=== PATIENT | male | born 1930 | race Caucasian/White ===

== ENCOUNTER 2017-03-16 12:41 | Observation (INO) | payer MEDICARE, BC ==
[2017-03-16] VITALS (9 sets, daily range): BP systolic 120–149; BP diastolic 61–77; PULSE 72–97; TEMP 97–98.2
[~2017-03-16] VITALS: Ht 165.1 cm; Wt 93.8 kg
[~2017-03-16 12:41] MED LIST: ALEVE 220MG220 MG PO; ASPIRIN E.C. 8181 MG PO; BETAPACE 80MG80 MG PO; BETAPACEAF120 PO; CARDI-OMEGA1000 MG PO; CEPHALEXIN500 M1 PO; COMPAZINE 110 MG/TAB PO; COUMADIN 22.5 MG/TAB PO; COUMADIN 3MG3 MG/TAB PO; COUMADIN 5MG5 MG/TAB PO; FLOMAX 0.40.4 MG/CAP PO; GLUCOPHAGE1000 MG PO; HUMALOG100 U/ML INJ; HUMALOG100 U/ML SC; HUMALOG100 U/ML SQ; K-DUR 2020 MEQ PO; K-TAB20 PO; LANTUS100 U/ML SC; LASIX 40MG TABL40 MG PO; MULTI VITAMINS1 TAB PO; NORVASC 5MG5 MG/TAB PO; NORVASC2.5 MG PO; SALMON OIL1000 MG PO; TYLENOL ARTHRI650 M1 PO; VASOTEC20 MG PO; WELCHOL 625MG625 MG PO; XALATAN EYE DROPS OP; ZYLOPRIM 300MG300 MG PO
[2017-03-16 13:24] LABS: HEMATOCRIT 31.2 % (42.0-52.0); HEMOGLOBIN 10.3 g/dl (13.5-18.0)
[2017-03-16] MEDS ORDERED: BETAPACE 80MG80 MG PO (14:41)
[2017-03-16] MEDS ORDERED: NORVASC2.5 MG PO (14:44)
[2017-03-16] MEDS ORDERED: VASOTEC20 MG PO (14:55)
[2017-03-16] MEDS ORDERED: NOVOLOG 100U100 U/M1 SQ (15:01)
[2017-03-16] MEDS ORDERED: WELCHOL 625MG625 MG PO (15:09)
[2017-03-16] MEDS ORDERED: PRILOSEC 20MG20 MG PO (15:10)
[2017-03-16] MEDS ORDERED: CEPHALEXIN500 M1 PO (15:11)
[2017-03-17 02:00] VITALS: BP 166/71; PULSE 91; TEMP 98.4
[2017-03-17 05:50] VITALS: BP 106/36; PULSE 77; TEMP 97.5
[2017-03-17 06:36] LABS: MEAN CELL VOLUME 99 fl (80.0-100.0); MEAN CORPUSCULAR HGB CONC 32 g/dl (33.0-37.0); MEAN PLATELET VOLUME 10.2 fl (7.4-10.4); PLATELET COUNT 249 K/mm3 (130-400); RED BLOOD COUNT 2.91 M/mm3 (4.20-5.60); REDCELL DISTRIBUTION WIDTH-CV 19.2 % (11.5-14.5); WHITE BLOOD COUNT 13.3 K/mm3 (4.8-10.8)
[2017-03-17 06:49] LABS: HEMATOCRIT 28.8 % (42.0-52.0); HEMOGLOBIN 9.3 g/dl (13.5-18.0); MEAN CORPUSCULAR HEMOGLOBIN 32 pg (27.0-31.0)
[2017-03-17 08:52] VITALS: BP 142/56
[2017-03-17 13:41] VITALS: BP 110/51; PULSE 73; TEMP 97.6
[2017-03-17 17:35] VITALS: BP 103/53; PULSE 85; TEMP 98.1
[2017-03-17 21:25] VITALS: BP 120/39; PULSE 74; TEMP 98.6
[2017-03-18 02:10] VITALS: BP 115/31; PULSE 75; TEMP 98.2
[2017-03-18 05:07] VITALS: BP 141/57; PULSE 84; TEMP 98
[2017-03-18 10:37] VITALS: BP 114/48; PULSE 72; TEMP 97.6
[2017-03-18 14:02] VITALS: BP 118/54; PULSE 69; TEMP 98.2
[2017-04-21] VITALS (553 sets, daily range): O2SAT 88–100
[2017-04-22] VITALS (1149 sets, daily range): O2SAT 79–99
[2017-04-23] VITALS (1277 sets, daily range): O2SAT 85–99
[2017-04-24] VITALS (464 sets, daily range): O2SAT 87–99
== END 2017-03-18 16:59 | disposition home or self-care (01) ==
LOC: SDCO 12:41 → JCC 17:06 → SDCO 03-17 13:00 → JCC 03-17 13:00
PROVIDERS: Urology
DX: C61 Malignant neoplasm of prostate (principal); N40.1 Benign prostatic hyperplasia with lower urinary tract symptoms; N13.8 Other obstructive and reflux uropathy; I48.91 Unspecified atrial fibrillation; I25.10 Atherosclerotic heart disease of native coronary artery without angina pectoris; I11.0 Hypertensive heart disease with heart failure; I50.9 Heart failure, unspecified; J44.9 Chronic obstructive pulmonary disease, unspecified; E11.9 Type 2 diabetes mellitus without complications; M19.90 Unspecified osteoarthritis, unspecified site; E66.9 Obesity, unspecified; M10.9 Gout, unspecified; D61.9 Aplastic anemia, unspecified; N39.0 Urinary tract infection, site not specified; I25.2 Old myocardial infarction; I45.10 Unspecified right bundle-branch block; R39.12 Poor urinary stream; Z95.0 Presence of cardiac pacemaker; Z79.84 Long term (current) use of oral hypoglycemic drugs; Z79.4 Long term (current) use of insulin; Z95.1 Presence of aortocoronary bypass graft; Z96.651 Presence of right artificial knee joint; Z85.51 Personal history of malignant neoplasm of bladder; Z87.891 Personal history of nicotine dependence; Z83.49 Family history of other endocrine, nutritional and metabolic diseases
CPT/HCPCS: OP; G0378; J0690; J1815; J2250; J2370; J2405; J2704; J3010; J3480; J7030

== ENCOUNTER 2017-04-07 15:54 | Inpatient (IN) | payer MEDICARE, BC ==
[~2017-04-07] VITALS: Ht 165.1 cm; Wt 103.6 kg
[~2017-04-07 15:54] MED LIST changes: +NOVOLOG 100U100 U/M1 SQ; +PRILOSEC 20MG20 MG PO
[2017-04-20 09:14] VITALS: BP 142/50; PULSE 70; TEMP 97.9
[2017-04-20] MEDS ORDERED: NEXIUM 20MG20 MG PO (11:29)
[2017-04-20] MEDS ORDERED: PRESERVISION1 SGL PO (12:52)
[2017-04-20] MEDS ORDERED: FOLIC ACID800 MCG PO (12:54)
[2017-04-20] MEDS ORDERED: PRILOSEC 20MG20 MG PO (13:46)
[2017-04-20 13:51] VITALS: BP 153/65; PULSE 70; TEMP 98.4
[2017-04-20 14:39] LABS: CREATININE, serum 1.44 mg/dL (0.66-1.25); POTASSIUM 4.7 mmol/L (3.4-5.0)
[2017-04-20 14:40] LABS: MEAN CELL VOLUME 98 fl (80.0-100.0); MEAN CORPUSCULAR HGB CONC 33 g/dl (33.0-37.0); MEAN PLATELET VOLUME 10.1 fl (7.4-10.4); PLATELET COUNT 236 K/mm3 (130-400); RED BLOOD COUNT 3.53 M/mm3 (4.20-5.60); REDCELL DISTRIBUTION WIDTH-CV 18.7 % (11.5-14.5); WHITE BLOOD COUNT 10.6 K/mm3 (4.8-10.8)
[2017-04-20 14:43] LABS: HEMATOCRIT 34.6 % (42.0-52.0); HEMOGLOBIN 11.3 g/dl (13.5-18.0); MEAN CORPUSCULAR HEMOGLOBIN 32 pg (27.0-31.0)
[2017-04-20 17:22] VITALS: BP 155/64; PULSE 88; TEMP 98
[2017-04-20 21:59] VITALS: BP 145/61; PULSE 79; TEMP 98.1
[2017-04-21] VITALS (17 sets, daily range): BP systolic 121–172; BP diastolic 46–108; PULSE 67–105; TEMP 96.7–98.2
[2017-04-21 10:45] LABS: ARTERIAL BLD GAS TCO2 CT 19.9; ARTERIAL BLOOD GAS BASE EXCESS -9.2 (-2-2); ARTERIAL BLOOD GAS HCO3 18.4 meq/L (22-26); OXYHEMOGLOBIN 97.2 %
[2017-04-21 10:47] LABS: ARTERIAL BLOOD GAS pH 7.19 (7.35-7.45)
[2017-04-21 10:48] LABS: ARTERIAL BLOOD GAS PO2 194.4 mmHg (80-100); ATS? NO
[2017-04-21 10:54] LABS: HEMATOCRIT 28.6 % (42.0-52.0)
[2017-04-21 13:50] LABS: ARTERIAL BLD GAS O2 SATURATION 98.2 % (92-100); ARTERIAL BLD GAS TCO2 CT 16.5; ARTERIAL BLOOD GAS BASE EXCESS -9.4 (-2-2); ARTERIAL BLOOD GAS HCO3 15.5 meq/L (22-26); ARTERIAL BLOOD GAS PHT 7.32 C (7.35-7.45); ARTERIAL BLOOD GAS pH 7.32 (7.35-7.45); OXYHEMOGLOBIN 97.8 %
[2017-04-21 14:18] LABS: ALLEN TEST NO; ATS? YES
[2017-04-21 20:54] LABS: BASO # 0.1 (0.0-0.2); BASO % 0.3 % (0.0-2.0); EOS % 0.1 % (0-4.0); GRAN # 11.6 (1.4-6.5); GRAN % 79.2 % (42.2-75.2); LYMPH # 0.9 (1.2-3.4); LYMPH % 5.9 % (20.0-51.0); MEAN CELL VOLUME 96 fl (80.0-100.0); MEAN CORPUSCULAR HGB CONC 33 g/dl (33.0-37.0); MEAN PLATELET VOLUME 10.2 fl (7.4-10.4); MONO # 1.8 (0.1-0.6); MONO % 12.6 % (1.7-9.3); PLATELET COUNT 177 K/mm3 (130-400); RED BLOOD COUNT 3.63 M/mm3 (4.20-5.60); REDCELL DISTRIBUTION WIDTH-CV 18.1 % (11.5-14.5); WHITE BLOOD COUNT 14.6 K/mm3 (4.8-10.8)
[2017-04-21 20:55] LABS: HEMATOCRIT 34.8 % (42.0-52.0); HEMOGLOBIN 11.5 g/dl (13.5-18.0); MEAN CORPUSCULAR HEMOGLOBIN 32 pg (27.0-31.0)
[2017-04-22] VITALS (12 sets, daily range): BP systolic 99–140; BP diastolic 51–82; PULSE 63–91; TEMP 97.5–98
[2017-04-22 04:58] LABS: ARTERIAL BLD GAS O2 SATURATION 95.3 % (92-100); ARTERIAL BLD GAS TCO2 CT 17.4; ARTERIAL BLOOD GAS BASE EXCESS -7.6 (-2-2); ARTERIAL BLOOD GAS HCO3 16.5 meq/L (22-26); ARTERIAL BLOOD GAS pH 7.37 (7.35-7.45); OXYHEMOGLOBIN 94.7 %
[2017-04-22 04:59] LABS: BASO % 0.3 % (0.0-2.0); EOS % 0.1 % (0-4.0); GRAN # 11.9 (1.4-6.5); GRAN % 79.4 % (42.2-75.2); LYMPH # 0.9 (1.2-3.4); LYMPH % 5.7 % (20.0-51.0); MEAN CELL VOLUME 97 fl (80.0-100.0); MEAN CORPUSCULAR HGB CONC 33 g/dl (33.0-37.0); MEAN PLATELET VOLUME 10.4 fl (7.4-10.4); MONO % 13.1 % (1.7-9.3); PLATELET COUNT 199 K/mm3 (130-400); RED BLOOD COUNT 3.44 M/mm3 (4.20-5.60); REDCELL DISTRIBUTION WIDTH-CV 18.3 % (11.5-14.5)
[2017-04-22 05:01] LABS: ABG VENTILATOR TIDAL VOLUME 500 mL; ATS? NO
[2017-04-22 05:03] LABS: HEMATOCRIT 33.3 % (42.0-52.0); HEMOGLOBIN 10.9 g/dl (13.5-18.0); MEAN CORPUSCULAR HEMOGLOBIN 32 pg (27.0-31.0)
[2017-04-22 05:10] LABS: ADJUSTED CALCIUM 8.9 mg/dL (8.4-10.2); BILIRUBIN,TOTAL 0.4 mg/dL (0.0-1.0); CALCIUM 7.3 mg/dL (8.4-10.2); CREATININE, serum 2.08 mg/dL (0.66-1.25); MAGNESIUM 1.1 mg/dL (1.6-2.3); PHOSPHOROUS 4.4 mg/dL (2.5-4.5); POTASSIUM 4.3 mmol/L (3.4-5.0); TOTAL PROTEIN 4.5 gm/dL (6.4-8.2)
[2017-04-22 10:03] LABS: ARTERIAL BLD GAS TCO2 CT 18.9; ARTERIAL BLOOD GAS BASE EXCESS -6.4 (-2-2); ARTERIAL BLOOD GAS HCO3 17.9 meq/L (22-26); ARTERIAL BLOOD GAS PHT 7.37 C (7.35-7.45); ARTERIAL BLOOD GAS PO2 85.2 mmHg (80-100); ARTERIAL BLOOD GAS PO2T 85.2 (80-100); ARTERIAL BLOOD GAS pH 7.37 (7.35-7.45); OXYHEMOGLOBIN 95.3 %
[2017-04-22 10:04] LABS: ATS? NO
[2017-04-22 16:10] LABS: HEMATOCRIT 32.5 % (42.0-52.0); HEMOGLOBIN 10.7 g/dl (13.5-18.0)
[2017-04-22 16:25] LABS: ADJUSTED CALCIUM 8.9 mg/dL (8.4-10.2); ALBUMIN 2.1 gm/dL (3.5-5.0); BILIRUBIN,TOTAL 0.4 mg/dL (0.0-1.0); CALCIUM 7.4 mg/dL (8.4-10.2); CREATININE, serum 2.55 mg/dL (0.66-1.25); MAGNESIUM 1.6 mg/dL (1.6-2.3); PHOSPHOROUS 4.7 mg/dL (2.5-4.5); POTASSIUM 4.1 mmol/L (3.4-5.0); TOTAL PROTEIN 4.7 gm/dL (6.4-8.2)
[2017-04-23 03:48] VITALS: BP 131/99; PULSE 79; TEMP 96.8
[2017-04-23 05:06] LABS: BASO # 0.1 (0.0-0.2); BASO % 0.3 % (0.0-2.0); EOS # 0.1 (0.0-0.7); EOS % 0.5 % (0-4.0); GRAN # 12.2 (1.4-6.5); GRAN % 79.8 % (42.2-75.2); HEMATOCRIT 30.4 % (42.0-52.0); HEMOGLOBIN 9.9 g/dl (13.5-18.0); LYMPH # 0.9 (1.2-3.4); MEAN CELL VOLUME 98 fl (80.0-100.0); MEAN CORPUSCULAR HEMOGLOBIN 32 pg (27.0-31.0); MEAN CORPUSCULAR HGB CONC 33 g/dl (33.0-37.0); MEAN PLATELET VOLUME 10.5 fl (7.4-10.4); MONO # 1.6 (0.1-0.6); MONO % 10.7 % (1.7-9.3); PLATELET COUNT 181 K/mm3 (130-400); REDCELL DISTRIBUTION WIDTH-CV 18.3 % (11.5-14.5); WHITE BLOOD COUNT 15.3 K/mm3 (4.8-10.8)
[2017-04-23 05:12] LABS: INR 1.2 (0.8-3.0)
[2017-04-23 05:19] LABS: ADJUSTED CALCIUM 8.9 mg/dL (8.4-10.2); ALBUMIN 2.1 gm/dL (3.5-5.0); BILIRUBIN,TOTAL 0.4 mg/dL (0.0-1.0); CALCIUM 7.4 mg/dL (8.4-10.2); CREATININE, serum 2.83 mg/dL (0.66-1.25); MAGNESIUM 1.6 mg/dL (1.6-2.3); PHOSPHOROUS 5.2 mg/dL (2.5-4.5); POTASSIUM 4.7 mmol/L (3.4-5.0); TOTAL PROTEIN 4.6 gm/dL (6.4-8.2)
[2017-04-23 08:00] VITALS: BP 141/66; PULSE 79; TEMP 98.6
[2017-04-23 12:00] VITALS: BP 134/57; PULSE 75; TEMP 97.5
[2017-04-23 16:00] VITALS: BP 151/52; PULSE 87
[2017-04-23 20:00] VITALS: BP 158/50; PULSE 92; TEMP 97.2
[2017-04-23 20:17] LABS: URINE APPEARANCE Turbid; URINE COLOR Red
[2017-04-23 20:18] LABS: PH 5 (5-8); URINE BILIRUBIN Negative (NEGATIVE); URINE BLOOD 3+ (NEGATIVE); URINE GLUCOSE 3+ (NEGATIVE); URINE KETONE Negative (NEGATIVE); URINE UROBILINOGEN Negative (NEGATIVE)
[2017-04-23 20:22] LABS: URINE RBC >50 /hpf
[2017-04-23 20:23] LABS: SQUAMOUS EPITHELIAL 0-2 /hpf
[2017-04-23 21:20] LABS: URINE PROTEIN:CREAT RATIO 2.93 (0.00-0.14)
[2017-04-23 23:55] VITALS: BP 149/63; PULSE 79; TEMP 97.9
[2017-04-24 03:55] VITALS: BP 130/44; PULSE 72; TEMP 97.3
[2017-04-24 04:48] LABS: ARTERIAL BLD GAS O2 SATURATION 92.3 % (92-100); ARTERIAL BLD GAS TCO2 CT 21.1; ARTERIAL BLOOD GAS BASE EXCESS -4.8 (-2-2); ARTERIAL BLOOD GAS PHT 7.36 C (7.35-7.45); ARTERIAL BLOOD GAS PO2 66.4 mmHg (80-100); ARTERIAL BLOOD GAS PO2T 66.4 (80-100); ARTERIAL BLOOD GAS pH 7.36 (7.35-7.45); OXYHEMOGLOBIN 91.8 %
[2017-04-24 04:49] LABS: ALLEN TEST YES; ALLENS TEST RESULT PASS; ATS? YES
[2017-04-24 06:27] LABS: CALCIUM 7.8 mg/dL (8.4-10.2); CREATININE, serum 3.15 mg/dL (0.66-1.25); MAGNESIUM 2.5 mg/dL (1.6-2.3); PHOSPHOROUS 3.6 mg/dL (2.5-4.5)
[2017-04-24 08:00] VITALS: BP 146/55; PULSE 71; TEMP 97.6
[2017-04-24 12:00] VITALS: BP 144/64; PULSE 78; TEMP 97.6
[2017-04-24 18:38] VITALS: BP 129/63; PULSE 84; TEMP 97.5
[2017-04-25 02:31] VITALS: BP 131/62; PULSE 70; TEMP 97.5
[2017-04-25 06:01] VITALS: BP 126/57; PULSE 72; TEMP 98.8
[2017-04-25 07:31] LABS: MEAN CELL VOLUME 98 fl (80.0-100.0); MEAN CORPUSCULAR HGB CONC 33 g/dl (33.0-37.0); MEAN PLATELET VOLUME 11.1 fl (7.4-10.4); PLATELET COUNT 201 K/mm3 (130-400); RED BLOOD COUNT 2.91 M/mm3 (4.20-5.60); REDCELL DISTRIBUTION WIDTH-CV 18.1 % (11.5-14.5); WHITE BLOOD COUNT 11.7 K/mm3 (4.8-10.8)
[2017-04-25 07:34] LABS: HEMATOCRIT 28.6 % (42.0-52.0); HEMOGLOBIN 9.3 g/dl (13.5-18.0); MEAN CORPUSCULAR HEMOGLOBIN 32 pg (27.0-31.0)
[2017-04-25 07:42] LABS: MAGNESIUM 2.7 mg/dL (1.6-2.3); PHOSPHOROUS 2.8 mg/dL (2.5-4.5)
[2017-04-25 07:43] LABS: ADJUSTED CALCIUM 9.9 mg/dL (8.4-10.2); ALBUMIN 2.2 gm/dL (3.5-5.0); BILIRUBIN,TOTAL 0.6 mg/dL (0.0-1.0); CALCIUM 8.5 mg/dL (8.4-10.2); CREATININE, serum 3.79 mg/dL (0.66-1.25)
[2017-04-25 08:08] LABS: BAND 8 % (0-10); BASOPHIL 1 % (0-2); EOSINOPHIL 1 % (0-4); HYPOCHROMIA 1+; METAMYELOCYTE 2 % (0-0); MYELOCYTE 2 % (0-0); NEUTROPHILS 76 % (42.0-75.2); PLATELET ESTIMATE NORMAL (NORMAL); TOTAL CELLS COUNTED 100
[2017-04-25 08:09] LABS: ADD PATHOLOGY DIFF REVIEW YES
[2017-04-25 08:24] LABS: PATHOLOGY DIFF REVIEW OK
[2017-04-25 10:55] VITALS: BP 134/51; PULSE 73; TEMP 97.4
[2017-04-25 14:16] VITALS: BP 148/57; PULSE 76; TEMP 97.8
[2017-04-25 18:05] VITALS: BP 161/61; PULSE 84
[2017-04-25 21:58] VITALS: BP 137/54; PULSE 79; TEMP 97.7
[2017-04-26 02:04] VITALS: BP 149/55; PULSE 80; TEMP 97.1
[2017-04-26 05:02] LABS: CALCIUM 8.1 mg/dL (8.4-10.2); MAGNESIUM 2.6 mg/dL (1.6-2.3); PHOSPHOROUS 2.8 mg/dL (2.5-4.5); POTASSIUM 3.9 mmol/L (3.4-5.0)
[2017-04-26 05:15] LABS: CREATININE, serum 4.13 mg/dL (0.66-1.25)
[2017-04-26 05:23] LABS: CREATININE, serum 4.12 mg/dL (0.66-1.25); FRACTIONAL EXCRETION OF NA+ 7.2 %
[2017-04-26 05:45] VITALS: BP 149/66; PULSE 76; TEMP 98.6
[2017-04-26 08:16] LABS: MEAN CELL VOLUME 99 fl (80.0-100.0); MEAN CORPUSCULAR HGB CONC 32 g/dl (33.0-37.0); MEAN PLATELET VOLUME 11.2 fl (7.4-10.4); PLATELET COUNT 205 K/mm3 (130-400); WHITE BLOOD COUNT 10.4 K/mm3 (4.8-10.8)
[2017-04-26 08:17] LABS: HEMATOCRIT 27.6 % (42.0-52.0); HEMOGLOBIN 8.9 g/dl (13.5-18.0); MEAN CORPUSCULAR HEMOGLOBIN 32 pg (27.0-31.0)
[2017-04-26 08:18] LABS: ADD PATHOLOGY DIFF REVIEW NO
[2017-04-26 08:45] LABS: BAND 7 % (0-10); EOSINOPHIL 8 % (0-4); METAMYELOCYTE 2 % (0-0); MYELOCYTE 2 % (0-0); NEUTROPHILS 68 % (42.0-75.2); PLATELET ESTIMATE NORMAL (NORMAL); TOTAL CELLS COUNTED 100
[2017-04-26 09:53] VITALS: BP 158/72; PULSE 80; TEMP 97.6
[2017-04-26 14:20] VITALS: BP 152/62; PULSE 79; TEMP 97.4
[2017-04-26 18:07] VITALS: BP 170/73; PULSE 81; TEMP 98.1
[2017-04-26 21:25] VITALS: BP 151/54; PULSE 78; TEMP 98.2
[2017-04-27 01:58] VITALS: BP 132/54; PULSE 79; TEMP 97.1
[2017-04-27 05:01] LABS: MEAN CELL VOLUME 98 fl (80.0-100.0); MEAN CORPUSCULAR HGB CONC 33 g/dl (33.0-37.0); MEAN PLATELET VOLUME 10.9 fl (7.4-10.4); PLATELET COUNT 221 K/mm3 (130-400); RED BLOOD COUNT 2.84 M/mm3 (4.20-5.60); WHITE BLOOD COUNT 12.5 K/mm3 (4.8-10.8)
[2017-04-27 05:04] LABS: ADD PATHOLOGY DIFF REVIEW NO; HEMATOCRIT 27.8 % (42.0-52.0); HEMOGLOBIN 9.1 g/dl (13.5-18.0); MEAN CORPUSCULAR HEMOGLOBIN 32 pg (27.0-31.0)
[2017-04-27 05:05] VITALS: BP 152/65; PULSE 80; TEMP 97.8
[2017-04-27 05:14] LABS: ADJUSTED CALCIUM 9.7 mg/dL (8.4-10.2); ALBUMIN 2.3 gm/dL (3.5-5.0); BILIRUBIN,TOTAL 0.6 mg/dL (0.0-1.0); CALCIUM 8.3 mg/dL (8.4-10.2); MAGNESIUM 2.4 mg/dL (1.6-2.3); TOTAL PROTEIN 5.2 gm/dL (6.4-8.2)
[2017-04-27 05:16] LABS: CREATININE, serum 4.47 mg/dL (0.66-1.25)
[2017-04-27 05:24] LABS: ANISOCYTOSIS 2+; BAND 7 % (0-10); EOSINOPHIL 1 % (0-4); METAMYELOCYTE 4 % (0-0); MYELOCYTE 5 % (0-0); NEUTROPHILS 64 % (42.0-75.2); PLATELET ESTIMATE NORMAL (NORMAL); TOTAL CELLS COUNTED 100
[2017-04-27 10:57] VITALS: BP 140/53; PULSE 80; TEMP 97.8
[2017-04-27 13:30] VITALS: BP 158/60; PULSE 80; TEMP 97.9
[2017-04-27 17:31] VITALS: BP 123/55; PULSE 78; TEMP 97.7
[2017-04-27 18:20] LABS: 12 HR URINE TOTAL VOLUME 0.7 L
[2017-04-27 21:29] VITALS: BP 140/51; PULSE 76; TEMP 97.8
[2017-04-28] VITALS (133 sets, daily range): BP systolic 93–108; BP diastolic 22–50; PULSE 54–92; TEMP 97.5–98.3; O2SAT 80–98
[2017-04-28 07:09] LABS: POTASSIUM 4.5 mmol/L (3.4-5.0)
[2017-04-28 07:52] LABS: CALCIUM 8.3 mg/dL (8.4-10.2)
[2017-04-28 07:55] LABS: CREATININE, serum 4.94 mg/dL (0.66-1.25)
[2017-04-28 08:15] LABS: MAGNESIUM 2.2 mg/dL (1.6-2.3)
[2017-04-28 18:24] LABS: ARTERIAL BLD GAS O2 SATURATION 92.4 % (92-100); ARTERIAL BLD GAS TCO2 CT 23.3; ARTERIAL BLOOD GAS BASE EXCESS -2.5 (-2-2); ARTERIAL BLOOD GAS HCO3 22.1 meq/L (22-26); ARTERIAL BLOOD GAS PO2 69.6 mmHg (80-100); ARTERIAL BLOOD GAS pH 7.39 (7.35-7.45); OXYHEMOGLOBIN 91.4 %
[2017-04-28 18:25] LABS: ALLEN TEST YES; ALLENS TEST RESULT PASS; ATS? YES
[2017-04-28 19:14] LABS: MEAN CELL VOLUME 99 fl (80.0-100.0); MEAN CORPUSCULAR HGB CONC 32 g/dl (33.0-37.0); MEAN PLATELET VOLUME 11.4 fl (7.4-10.4); PLATELET COUNT 288 K/mm3 (130-400); RED BLOOD COUNT 2.86 M/mm3 (4.20-5.60); REDCELL DISTRIBUTION WIDTH-CV 18.4 % (11.5-14.5); WHITE BLOOD COUNT 15.4 K/mm3 (4.8-10.8)
[2017-04-28 19:15] LABS: HEMATOCRIT 28.2 % (42.0-52.0); HEMOGLOBIN 9.1 g/dl (13.5-18.0); MEAN CORPUSCULAR HEMOGLOBIN 32 pg (27.0-31.0)
[2017-04-28 19:18] LABS: INR 1.1 (0.8-3.0); PROTHROMBIN TIME 12.3 SECONDS (9.7-12.8)
[2017-04-28 19:21] LABS: PARTIAL THROMBOPLASTIN TIME 33.6 SECONDS (26.0-37.0)
[2017-04-29] VITALS (111 sets, daily range): BP systolic 71; BP diastolic 37; PULSE 94; TEMP 101.3; O2SAT 76–93
== END 2017-04-29 05:45 | disposition expired | DRG 653 ==
LOC: SURG 04-20 07:30 → ICU 04-20 08:46 → SURG 04-21 07:30 → ICU 04-21 11:50 → SURG 04-24 12:29 → ICU 04-28 19:01
PROVIDERS: Family Medicine; Internal Medicine; Internal Medicine Nephrology; Internal Medicine Pulmonary Disease; Nurse Anesthetist, Certified Registered; Nurse Practitioner Family; Urology
PROC: 0T180ZC Bypass Bilateral Ureters to Ileocutaneous, Open Approach (ICD-10-PCS; 2017-04-21)
PROC: 0TTB0ZZ Resection of Bladder, Open Approach (ICD-10-PCS; principal; 2017-04-21 07:30)
PROC: 0VT00ZZ Resection of Prostate, Open Approach (ICD-10-PCS; 2017-04-21 07:30)
DX: C67.0 Malignant neoplasm of trigone of bladder (principal); J96.01 Acute respiratory failure with hypoxia; N17.0 Acute kidney failure with tubular necrosis; Z66 Do not resuscitate; Z51.5 Encounter for palliative care; N18.4 Chronic kidney disease, stage 4 (severe); E87.2 Acidosis; D62 Acute posthemorrhagic anemia; E46 Unspecified protein-calorie malnutrition; J98.11 Atelectasis; K91.3 Postprocedural intestinal obstruction; C61 Malignant neoplasm of prostate; I48.0 Paroxysmal atrial fibrillation; I25.10 Atherosclerotic heart disease of native coronary artery without angina pectoris; I12.9 Hypertensive chronic kidney disease with stage 1 through stage 4 chronic kidney disease, or unspecified chronic kidney disease; E11.21 Type 2 diabetes mellitus with diabetic nephropathy; E11.22 Type 2 diabetes mellitus with diabetic chronic kidney disease; Z87.891 Personal history of nicotine dependence; E83.42 Hypomagnesemia; E83.39 Other disorders of phosphorus metabolism; I34.0 Nonrheumatic mitral (valve) insufficiency
CPT/HCPCS: 99223; 99233-AI; A4217; A9284; B4178; C1751; C1758; C9113; J0171; J0610; J0690; J0694; J1644; J1650; J1815; J1940; J2270; J2405; J2704; J2765; J3010; J3475; J3480; J7030; J7120; J7131; P9016; Q9967